=== PATIENT | male | born 1950 | race Caucasian/White ===

== ENCOUNTER 2017-05-14 22:11 | Emergency (ER) | payer MEDICARE, MEDICAID ==
[~2017-05-14] VITALS: Ht 172.7 cm; Wt 95.0 kg
[~2017-05-14 22:11] MED LIST: ADV50500 INH; ALBU18HF2 IH; ASPI-1265 PO; ATOR-2 PO; CLOP75TA33 PO; COL100C PO; FENO135C PO; IMD30T PO; LISI-222 PO; LOP25T PO; NITR0.4T51 SL; NORCO10T PO
[2017-05-14] MEDS ORDERED: methylPREDNISolone sod succ 125mg/2ml vial IV ONE (22:50)
[2017-05-14 23:12] LABS: BASOPHILS # (AUTO) 0.1 X10'3 (0-0.2); BASOPHILS % (AUTO) 0.5 % (0-1); EOSINOPHILS # (AUTO) 0.1 X10'3 (0-0.9); EOSINOPHILS % (AUTO) 0.5 % (0-6); HEMOGLOBIN 14.7 g/dl (14.0-17.9); LYMPHOCYTES # (AUTO) 1.3 X10'3 (1.1-4.8); LYMPHOCYTES % (AUTO) 10.9 % (21-51); MEAN CORPUSCULAR HEMOGLOBIN 29.3 PG (27.0-31.0); MEAN CORPUSCULAR HGB CONC 34.2 % (33.0-36.5); MEAN CORPUSCULAR VOLUME 85.7 FL (78-98); MEAN PLATELET VOLUME 8.3 FL (7.4-10.4); MONOCYTES # (AUTO) 0.5 X10'3 (0-0.9); MONOCYTES % (AUTO) 4.6 % (2-12); NEUTROPHILS % (AUTO) 83.5 % (42-75); PLATELET COUNT 197 X10'3 (140-440); RED BLOOD COUNT 5.02 X10'6 (4.70-6.10); RED CELL DISTRIBUTION WIDTH 14.8 % (11.5-14.5)
[2017-05-14 23:36] LABS: ALANINE AMINOTRANSFERASE 56 U/L (12-78); ALBUMIN 4.1 G/DL (3.4-5.0); ALBUMIN/GLOBULIN RATIO 1.2 (1.1-1.5); ALKALINE PHOSPHATASE 82 IU/L (46-116); ANION GAP 10 (8-16); ASPARTATE AMINO TRANSFERASE 34 U/L (10-37); BILIRUBIN,TOTAL 0.5 MG/DL (0.1-1.0); BLOOD UREA NITROGEN 14 MG/DL (7-18); BUN/CREATININE RATIO 17.5 (5.4-32.0); CALCIUM 9.2 MG/DL (8.5-10.1); CHLORIDE 104 MMOL/L (99-107); GLUCOSE 128 MG/DL (70-104); POTASSIUM 3.9 MMOL/L (3.5-5.1); SODIUM 139 MMOL/L (135-145); TOTAL CARBON DIOXIDE 25.3 MMOL/L (24-32); TOTAL PROTEIN 7.6 G/DL (6.4-8.2); eGFR > 90 ML/MIN
[2017-05-15] MEDS ORDERED: AZIT250T2 PO (00:30)
[2017-05-15] MEDS ORDERED: PRED20TA PO (00:30)
[2017-05-15] MEDS ORDERED: TAM75C PO (00:30)
[2017-05-15 00:39] VITALS: BP 116/79
== END 2017-05-15 00:51 | disposition home or self-care (01) ==
LOC: ER 22:12
DX: J44.1 Chronic obstructive pulmonary disease with (acute) exacerbation (principal); J06.9 Acute upper respiratory infection, unspecified; G62.9 Polyneuropathy, unspecified; I25.10 Atherosclerotic heart disease of native coronary artery without angina pectoris; E78.00 Pure hypercholesterolemia, unspecified; I10 Essential (primary) hypertension; I25.2 Old myocardial infarction; E11.9 Type 2 diabetes mellitus without complications; G89.29 Other chronic pain; Z95.1 Presence of aortocoronary bypass graft; Z98.890 Other specified postprocedural states; Z86.73 Personal history of transient ischemic attack (TIA), and cerebral infarction without residual deficits; Z79.82 Long term (current) use of aspirin; Z79.899 Other long term (current) drug therapy; Z99.81 Dependence on supplemental oxygen
CPT/HCPCS: 36415; 71045; 80053; 83605; 83880; 85025; 87040; 87081; 87502; 87503; 87880; 93005; 96374; 99285; J2930; J7030

== ENCOUNTER 2018-11-14 16:11 | Emergency (ER) | payer MEDICARE, MEDICAID ==
[~2018-11-14] VITALS: Ht 172.7 cm; Wt 100.0 kg
[2018-11-14 17:08] LABS: BASOPHILS % (AUTO) 0.7 % (0-1); EOSINOPHILS # (AUTO) 0.1 X10'3 (0-0.9); EOSINOPHILS % (AUTO) 1.6 % (0-6); HEMATOCRIT 40.4 % (42.0-52.0); HEMOGLOBIN 13.3 g/dl (14.0-17.9); LYMPHOCYTES # (AUTO) 1.6 X10'3 (1.1-4.8); LYMPHOCYTES % (AUTO) 27.2 % (21-51); MEAN CORPUSCULAR HEMOGLOBIN 29.1 PG (27.0-31.0); MEAN CORPUSCULAR HGB CONC 33.1 g/dL (33.0-36.5); MEAN CORPUSCULAR VOLUME 88.1 FL (78-98); MEAN PLATELET VOLUME 8.6 FL (7.4-10.4); MONOCYTES # (AUTO) 0.4 X10'3 (0-0.9); MONOCYTES % (AUTO) 7.2 % (2-12); NEUTROPHILS # (AUTO) 3.7 X10'3 (1.8-7.7); NEUTROPHILS % (AUTO) 63.3 % (42-75); PLATELET COUNT 157 X10'3 (140-440); RED BLOOD COUNT 4.58 X10'6 (4.70-6.10); RED CELL DISTRIBUTION WIDTH 15.4 % (11.5-14.5); WHITE BLOOD COUNT 5.8 X10'3 (4.5-11.0)
--- NOTE | 2018-11-14 17:10 | NUR ---
GAIT TEST DONE, AND PT'S GAIT WAS EXCELLENT. PT'S WAS IN NO DISTRESS.
[2018-11-14 17:19] LABS: PARTIAL THROMBOPLASTIN TIME 29 SECONDS (22-32)
[2018-11-14 17:21] LABS: ALANINE AMINOTRANSFERASE 36 U/L (12-78); ALBUMIN 3.5 G/DL (3.4-5.0); ALKALINE PHOSPHATASE 78 IU/L (46-116); ANION GAP 11 (8-16); ASPARTATE AMINO TRANSFERASE 21 U/L (10-37); BILIRUBIN,TOTAL 0.4 MG/DL (0.1-1.0); BLOOD UREA NITROGEN 16 MG/DL (7-18); BUN/CREATININE RATIO 16.2 (5.4-32.0); CALCIUM 8.9 MG/DL (8.5-10.1); CHLORIDE 109 MMOL/L (99-107); CREATININE 0.99 MG/DL (0.60-1.10); GLUCOSE 115 MG/DL (70-104); POTASSIUM 3.7 MMOL/L (3.5-5.1); SODIUM 144 MMOL/L (135-145); TOTAL CARBON DIOXIDE 24.2 MMOL/L (24-32); eGFR 75 ML/MIN
[2018-11-14 17:23] LABS: TROPONIN I < 0.04 NG/ML (0.0-0.05)
[2018-11-14 18:02] VITALS: BP 139/79
== END 2018-11-14 18:32 | disposition home or self-care (01) ==
LOC: ER 16:12
DX: R20.0 Anesthesia of skin (principal); R20.2 Paresthesia of skin; R53.1 Weakness; R51 Headache; R22.1 Localized swelling, mass and lump, neck; I25.10 Atherosclerotic heart disease of native coronary artery without angina pectoris; E78.00 Pure hypercholesterolemia, unspecified; I25.2 Old myocardial infarction; J44.9 Chronic obstructive pulmonary disease, unspecified; G89.29 Other chronic pain; E11.42 Type 2 diabetes mellitus with diabetic polyneuropathy; I50.9 Heart failure, unspecified; I11.0 Hypertensive heart disease with heart failure; Z79.82 Long term (current) use of aspirin; Z79.899 Other long term (current) drug therapy; Z86.73 Personal history of transient ischemic attack (TIA), and cerebral infarction without residual deficits; Z98.890 Other specified postprocedural states; Z95.1 Presence of aortocoronary bypass graft
CPT/HCPCS: 36415; 70450; 71045; 80053; 82948; 84484; 85025; 85610; 85730; 93005; 99284

== ENCOUNTER 2019-01-04 18:14 | Emergency (ER) | payer MEDICARE, MEDICAID ==
[~2019-01-04] VITALS: Ht 172.7 cm; Wt 95.4 kg
[2019-01-04 18:54] LABS: BASOPHILS # (AUTO) 0.1 X10'3 (0-0.2); BASOPHILS % (AUTO) 0.7 % (0-1); EOSINOPHILS % (AUTO) 0.4 % (0-6); HEMATOCRIT 42.5 % (42.0-52.0); HEMOGLOBIN 14.3 g/dl (14.0-17.9); LYMPHOCYTES # (AUTO) 1.2 X10'3 (1.1-4.8); LYMPHOCYTES % (AUTO) 11.5 % (21-51); MEAN CORPUSCULAR HEMOGLOBIN 29.4 PG (27.0-31.0); MEAN CORPUSCULAR HGB CONC 33.7 g/dL (33.0-36.5); MEAN CORPUSCULAR VOLUME 87.3 FL (78-98); MEAN PLATELET VOLUME 8.7 FL (7.4-10.4); MONOCYTES # (AUTO) 0.5 X10'3 (0-0.9); MONOCYTES % (AUTO) 4.9 % (2-12); NEUTROPHILS # (AUTO) 8.7 X10'3 (1.8-7.7); NEUTROPHILS % (AUTO) 82.5 % (42-75); PLATELET COUNT 186 X10'3 (140-440); RED BLOOD COUNT 4.87 X10'6 (4.70-6.10); RED CELL DISTRIBUTION WIDTH 15.8 % (11.5-14.5); WHITE BLOOD COUNT 10.6 X10'3 (4.5-11.0)
[2019-01-04 19:08] LABS: ALANINE AMINOTRANSFERASE 44 U/L (12-78); ALKALINE PHOSPHATASE 91 IU/L (46-116); ANION GAP 11 (8-16); BILIRUBIN,TOTAL 0.5 MG/DL (0.1-1.0); BLOOD UREA NITROGEN 16 MG/DL (7-18); BUN/CREATININE RATIO 17.4 (5.4-32.0); CALCIUM 8.9 MG/DL (8.5-10.1); CHLORIDE 103 MMOL/L (99-107); CREATININE 0.92 MG/DL (0.60-1.10); SODIUM 139 MMOL/L (135-145); TOTAL PROTEIN 7.9 G/DL (6.4-8.2); eGFR 82 ML/MIN
[2019-01-04 19:21] LABS: GLUCOSE 132 MG/DL (70-104); POTASSIUM 3.9 MMOL/L (3.5-5.1)
[2019-01-04 19:23] LABS: ASPARTATE AMINO TRANSFERASE 34 U/L (10-37)
[2019-01-04] MEDS ORDERED: normal saline 1000ML IV soln IVB ONE (19:30)
[2019-01-04] MEDS ORDERED: methylPREDNISolone sod succ 125mg/2ml vial IV ONE (19:30)
[2019-01-04] MEDS ORDERED: ipratropium/albuterol 3ml nebule NEB ONE (19:30)
[2019-01-04] MEDS ORDERED: acetaminophen 325mg tablet PO ONE (19:55)
[2019-01-04] MEDS ORDERED: CefTRIAXone 2gm/D5W 50ml 50 ML IV ONE (19:55)
[2019-01-04] MEDS ORDERED: CEPH250T PO (19:57)
[2019-01-04] MEDS ORDERED: PRED20TA PO (19:57)
[2019-01-04] MEDS ORDERED: GUAI-647 PO (19:57)
[2019-01-04 21:11] VITALS: BP 128/73
== END 2019-01-04 21:13 | disposition home or self-care (01) ==
LOC: ER 18:14
DX: J18.9 Pneumonia, unspecified organism (principal); R00.0 Tachycardia, unspecified; G62.9 Polyneuropathy, unspecified; I25.10 Atherosclerotic heart disease of native coronary artery without angina pectoris; E78.00 Pure hypercholesterolemia, unspecified; I25.2 Old myocardial infarction; J44.9 Chronic obstructive pulmonary disease, unspecified; E11.9 Type 2 diabetes mellitus without complications; G89.29 Other chronic pain; I11.0 Hypertensive heart disease with heart failure; I50.9 Heart failure, unspecified; Z79.82 Long term (current) use of aspirin; Z79.2 Long term (current) use of antibiotics; Z86.73 Personal history of transient ischemic attack (TIA), and cerebral infarction without residual deficits; Z98.890 Other specified postprocedural states; Z79.899 Other long term (current) drug therapy
CPT/HCPCS: 36415; 71046; 80053; 83605; 85025; 87040; 94640; 94760; 96365; 96375; 99284; J0696; J2930; J7030

== ENCOUNTER 2019-11-20 16:29 | Emergency (ER) | payer MEDICARE, MEDICAID ==
[~2019-11-20] VITALS: Ht 172.7 cm; Wt 100.0 kg
[2019-11-20 17:10] LABS: BASOPHILS # (AUTO) 0.1 X10'3 (0-0.2); BASOPHILS % (AUTO) 1.2 % (0-1); EOSINOPHILS # (AUTO) 0.1 X10'3 (0-0.9); EOSINOPHILS % (AUTO) 1.3 % (0-6); HEMATOCRIT 42.4 % (42.0-52.0); HEMOGLOBIN 14.3 g/dl (14.0-17.9); LYMPHOCYTES % (AUTO) 29.6 % (21-51); MEAN CORPUSCULAR HGB CONC 33.8 g/dL (33.0-36.5); MEAN CORPUSCULAR VOLUME 85.9 FL (78-98); MEAN PLATELET VOLUME 8.8 FL (7.4-10.4); MONOCYTES # (AUTO) 0.5 X10'3 (0-0.9); MONOCYTES % (AUTO) 7.1 % (2-12); NEUTROPHILS # (AUTO) 4.1 X10'3 (1.8-7.7); NEUTROPHILS % (AUTO) 60.8 % (42-75); PLATELET COUNT 176 X10'3 (140-440); RED BLOOD COUNT 4.93 X10'6 (4.70-6.10); RED CELL DISTRIBUTION WIDTH 15.9 % (11.5-14.5); WHITE BLOOD COUNT 6.8 X10'3 (4.5-11.0)
[2019-11-20 17:27] LABS: ALANINE AMINOTRANSFERASE 27 U/L (12-78); ALBUMIN 3.8 G/DL (3.4-5.0); ALKALINE PHOSPHATASE 84 IU/L (46-116); ANION GAP 10 (8-16); BILIRUBIN,TOTAL 0.5 MG/DL (0.1-1.0); BLOOD UREA NITROGEN 13 MG/DL (7-18); BUN/CREATININE RATIO 14.4 (5.4-32.0); CALCIUM 8.7 MG/DL (8.5-10.1); CHLORIDE 105 MMOL/L (99-107); SODIUM 140 MMOL/L (135-145); TOTAL CARBON DIOXIDE 25.2 MMOL/L (24-32); TOTAL PROTEIN 7.6 G/DL (6.4-8.2); eGFR 83 ML/MIN
[2019-11-20 17:30] LABS: ASPARTATE AMINO TRANSFERASE 32 U/L (10-37); GLUCOSE 119 MG/DL (70-104); POTASSIUM 3.5 MMOL/L (3.5-5.1)
[2019-11-20 18:55] VITALS: BP 158/86
== END 2019-11-20 18:59 | disposition left against medical advice (07) ==
LOC: ER 16:30
DX: R07.89 Other chest pain (principal); E11.42 Type 2 diabetes mellitus with diabetic polyneuropathy; I25.10 Atherosclerotic heart disease of native coronary artery without angina pectoris; E78.00 Pure hypercholesterolemia, unspecified; I10 Essential (primary) hypertension; I25.2 Old myocardial infarction; J44.9 Chronic obstructive pulmonary disease, unspecified; G89.29 Other chronic pain; Z95.1 Presence of aortocoronary bypass graft; Z98.890 Other specified postprocedural states; Z79.82 Long term (current) use of aspirin; Z79.899 Other long term (current) drug therapy
CPT/HCPCS: 36415; 71045; 80053; 84484; 85025; 93005; 99285

== ENCOUNTER 2021-04-26 15:57 | Inpatient (IN) | payer MEDICARE, MEDICAID ==
[~2021-04-26] VITALS: Ht 172.7 cm; Wt 85.9 kg
[2021-04-26 17:11] LABS: BASOPHILS % (AUTO) 0.2 % (0-1); EOSINOPHILS % (AUTO) 0 % (0-6); HEMATOCRIT 40.3 % (42.0-52.0); HEMOGLOBIN 13.6 g/dl (14.0-17.9); LYMPHOCYTES # (AUTO) 0.5 X10'3 (1.1-4.8); MEAN CORPUSCULAR HEMOGLOBIN 28.4 PG (27.0-31.0); MEAN CORPUSCULAR HGB CONC 33.8 g/dL (33.0-36.5); MEAN CORPUSCULAR VOLUME 84.1 FL (78-98); MEAN PLATELET VOLUME 8.9 FL (7.4-10.4); MONOCYTES # (AUTO) 0.3 X10'3 (0-0.9); MONOCYTES % (AUTO) 4.8 % (2-12); NEUTROPHILS # (AUTO) 4.5 X10'3 (1.8-7.7); PLATELET COUNT 143 X10'3 (140-440); RED BLOOD COUNT 4.79 X10'6 (4.70-6.10); RED CELL DISTRIBUTION WIDTH 15.2 % (11.5-14.5); WHITE BLOOD COUNT 5.2 X10'3 (4.5-11.0)
[2021-04-26 17:30] LABS: ALANINE AMINOTRANSFERASE 54 U/L (12-78); ALBUMIN 3.1 G/DL (3.4-5.0); ALBUMIN/GLOBULIN RATIO 0.8 (1.1-1.5); ALKALINE PHOSPHATASE 67 IU/L (46-116); ANION GAP 10 (8-16); ASPARTATE AMINO TRANSFERASE 72 U/L (10-37); BILIRUBIN,TOTAL 0.8 MG/DL (0.1-1.0); BLOOD UREA NITROGEN 24 MG/DL (7-18); BUN/CREATININE RATIO 21.2 (5.4-32.0); CALCIUM 8.4 MG/DL (8.5-10.1); CHLORIDE 100 MMOL/L (99-107); CREATININE 1.13 MG/DL (0.60-1.10); GLUCOSE 131 MG/DL (70-104); SODIUM 135 MMOL/L (135-145); TOTAL CARBON DIOXIDE 24.7 MMOL/L (24-32); eGFR 64 ML/MIN
[2021-04-26] MEDS ORDERED: potassium Cl 20 mEq SR tablet PO PRN ×2 (17:40)
[2021-04-26] MEDS ORDERED: magnesium 2GM in 50ml NS 50 ML IV PRN (17:40)
[2021-04-26] MEDS ORDERED: magnesium Cl slow-release 64mg tablet PO PRN (17:40)
[2021-04-26] MEDS ORDERED: magnesium 4gm in 100ml NS 100 ML IV PRN (17:40)
[2021-04-26] MEDS ORDERED: acetaminophen 325mg tablet PO PRN (17:40)
[2021-04-26] MEDS ORDERED: potassium CL 10mEq/100ml bag 100 ML IV PRN (17:40)
[2021-04-26] MEDS ORDERED: mag hydrox/Alum hydrox/simeth 30ml oral suspension PO PRN (17:40)
[2021-04-26] MEDS ORDERED: magnesium hydroxide 30ml (MOM) UD suspension PO PRN (17:40)
[2021-04-26] MEDS ORDERED: ondansetron/PF 4mg/2ml inj IV PRN (17:40)
[2021-04-26] MEDS ORDERED: CLOP75TA34 PO (17:47)
[2021-04-26] MEDS ORDERED: TRAZ-251 PO (17:47)
[2021-04-26] MEDS ORDERED: GABA300C PO (17:47)
[2021-04-26] MEDS ORDERED: ALBU8HFA IH (17:47)
[2021-04-26] MEDS ORDERED: LISI2.5T14 PO (17:47)
[2021-04-26] MEDS ORDERED: REMDESIVIR INJ 200 MG in normal saline 100ml IV soln 100 ML IV ONE (18:00)
[2021-04-26] MEDS ORDERED: dexamethasone inj 6 MG in dextrose 5%-water 100 ML IV ONE (18:00)
--- NOTE | 2021-04-26 18:00 | NUR ---
PT REFUSING ADMISSION. MD AT BEDSIDE EXPLAINING RISKS OF LEAVING HOSPITAL. PT IS CURRENTLY REQUIRING 15 LTR O2 ON NONREBREATHER. O2 TURNED OFF TO TRIAL O2 DEMANDS. MEDS CURRENTLY ON HOLD.
[2021-04-26 18:07] LABS: D-DIMER 1.94 MG/L FEU (0-0.50)
[2021-04-26] MEDS: normal saline 1000ml 1,000 ML IV SCH ×2 (18:34→19:55)
[2021-04-26] MEDS ORDERED: iohexol 350MG/ML 100ml bottle IV ONE (18:50)
--- NOTE | 2021-04-26 19:00 | NUR ---
Patient in room ORTHO 4016. I have received report from SARANYA Young and had the opportunity to ask questions and assume patient care.
[2021-04-26 19:21] VITALS: BP 126/70
[2021-04-26] MEDS: K and/or MAG REPLACEMENT MC SCH (19:44)
[2021-04-26] MEDS: docusate sod 100mg capsule PO SCH (19:45)
[2021-04-26] MEDS: enoxaparin 40mg/0.4ml syringe SUBCUT SCH (19:52)
[2021-04-26] MEDS: dexamethasone 4mg/ml inj IV SCH (19:52)
[2021-04-26 19:55] LABS: MAGNESIUM 1.9 MG/DL (1.5-2.4); POTASSIUM 3.9 MMOL/L (3.5-5.1)
[2021-04-26] MEDS: LORazepam 0.5 MG tablet PO PRN (21:42)
[2021-04-26 22:00] VITALS: BP 117/69
[2021-04-26] MEDS: traZODone 50mg tablet PO SCH (22:27)
[2021-04-27 02:00] VITALS: BP 113/72
[2021-04-27] MEDS: dexamethasone 4mg/ml inj IV SCH ×4 (02:26→20:36)
[2021-04-27 06:00] VITALS: BP 133/71
--- NOTE | 2021-04-27 06:05 | NUR ---
RECEIVED REPORT FROM SARANYA MELVIN
--- NOTE | 2021-04-27 06:30 | NUR ---
Problems reprioritized. Patient report given, questions answered & plan of care reviewed with SARANYA Lala.
[2021-04-27] MEDS: REMDESIVIR INJ 100 MG in normal saline 100ml IV soln 100 ML IV SCH (07:44)
[2021-04-27] MEDS: enoxaparin 40mg/0.4ml syringe SUBCUT SCH ×2 (07:46→20:35)
[2021-04-27] MEDS: docusate sod 100mg capsule PO SCH ×2 (07:47→20:00)
[2021-04-27 07:49] LABS: EOSINOPHILS % (AUTO) 0 % (0-6); HEMOGLOBIN 14.5 g/dl (14.0-17.9); LYMPHOCYTES # (AUTO) 0.7 X10'3 (1.1-4.8); MONOCYTES # (AUTO) 0.2 X10'3 (0-0.9)
[2021-04-27 07:53] LABS: BASOPHILS % (AUTO) 0.7 % (0-1); HEMATOCRIT 43.4 % (42.0-52.0); LYMPHOCYTES % (AUTO) 13.5 % (21-51); MEAN CORPUSCULAR HEMOGLOBIN 28.1 PG (27.0-31.0); MEAN CORPUSCULAR HGB CONC 33.3 g/dL (33.0-36.5); MEAN CORPUSCULAR VOLUME 84.3 FL (78-98); MEAN PLATELET VOLUME 8.7 FL (7.4-10.4); MONOCYTES % (AUTO) 3.5 % (2-12); NEUTROPHILS % (AUTO) 82.3 % (42-75); PLATELET COUNT 151 X10'3 (140-440); RED BLOOD COUNT 5.15 X10'6 (4.70-6.10); RED CELL DISTRIBUTION WIDTH 15.3 % (11.5-14.5); WHITE BLOOD COUNT 4.8 X10'3 (4.5-11.0)
[2021-04-27] MEDS: K and/or MAG REPLACEMENT MC SCH ×2 (08:00→20:00)
[2021-04-27 08:02] LABS: ANION GAP 12 (8-16); BLOOD UREA NITROGEN 27 MG/DL (7-18); BUN/CREATININE RATIO 27.8 (5.4-32.0); CALCIUM 8.7 MG/DL (8.5-10.1); CHLORIDE 103 MMOL/L (99-107); CREATININE 0.97 MG/DL (0.60-1.10); GLUCOSE 155 MG/DL (70-104); POTASSIUM 4.3 MMOL/L (3.5-5.1); SODIUM 139 MMOL/L (135-145); TOTAL CARBON DIOXIDE 24.4 MMOL/L (24-32); eGFR 76 ML/MIN
[2021-04-27 08:15] LABS: C-REACTIVE PROTEIN 5.65 MG/DL (0.0-0.5); CHOL/HDL RATIO 3.3 (0.00-4.99); CHOLESTEROL 83 MG/DL (0-200); HDL CHOLESTEROL 25 MG/DL (35-60); LDL CHOLESTEROL 37 MG/DL (50-100); TRIGLYCERIDES 103 MG/DL (20-135)
[2021-04-27 08:18] LABS: HEMOGLOBIN A1C 6.7 % (4.5-6.2)
[2021-04-27] MEDS ORDERED: traZODone 50mg tablet PO PRN (08:40)
[2021-04-27] MEDS ORDERED: ALBUTEROL INHALER 1 PUFF/90 MCG INHALER IH PRN (08:45)
[2021-04-27] MEDS: clopidogrel 75mg tablet PO SCH (08:52)
[2021-04-27] MEDS: lisinopril 2.5mg tablet PO SCH (08:52)
[2021-04-27] MEDS: gabapentin 300mg capsule PO SCH ×3 (08:53→20:36)
--- NOTE | 2021-04-27 08:59 | NUR ---
Malnutrition consult: Pt admitted w/ Covid diagnosed 10 days ago a SOB starting 3 days ago per EMR; on 15L HF oxygen. Current wt not scaled though consistent w/ wt from previous admissions. No signs of muscle or fat wasting reported. Currently on Heart healthy diet w/ 25% intake of first meal. Recommend liberalizing to Regular diet in view of Lipid panel WNL. No edema noted. At this time, pt does not meet minimum criteria for malnutrition. Will continue to monitor. Addendum: 04/27/21 at [address] Amended: Links added.
[2021-04-27 10:00] VITALS: BP 137/73
[2021-04-27] MEDS ORDERED: LORazepam 0.5 MG tablet PO PRN (13:30)
[2021-04-27] MEDS: LORazepam 0.5 MG tablet PO PRN (13:47)
[2021-04-27 14:00] VITALS: BP 133/72
[2021-04-27 18:00] VITALS: BP 121/54
--- NOTE | 2021-04-27 18:06 | NUR ---
GAVE REPORT TO SARANYA HILL
[2021-04-27] MEDS: ALBUTEROL INHALER 1 PUFF/90 MCG INHALER IH SCH (20:05)
[2021-04-27] MEDS: traZODone 50mg tablet PO SCH (20:36)
[2021-04-27 22:04] VITALS: BP 131/53
[2021-04-28] MEDS: dexamethasone 4mg/ml inj IV SCH ×2 (01:26→07:19)
[2021-04-28 02:00] VITALS: BP 107/59
[2021-04-28] MEDS: ALBUTEROL INHALER 1 PUFF/90 MCG INHALER IH SCH ×3 (03:02→15:00)
[2021-04-28 06:00] VITALS: BP 116/72
[2021-04-28] MEDS: LORazepam 0.5 MG tablet PO PRN ×3 (06:03→20:03)
--- NOTE | 2021-04-28 06:18 | NUR ---
Problems reprioritized. Patient report given, questions answered & plan of care reviewed with SARANYA HUTCHISON.
--- NOTE | 2021-04-28 06:24 | NUR ---
Patient in room ORTHO 4016. I have received report from SARANYA HILL and had the opportunity to ask questions and assume patient care.
[2021-04-28] MEDS: enoxaparin 40mg/0.4ml syringe SUBCUT SCH ×2 (07:19→20:03)
[2021-04-28] MEDS: gabapentin 300mg capsule PO SCH ×3 (07:20→20:02)
[2021-04-28] MEDS: lisinopril 2.5mg tablet PO SCH (07:20)
[2021-04-28] MEDS: REMDESIVIR INJ 100 MG in normal saline 100ml IV soln 100 ML IV SCH (07:20)
[2021-04-28] MEDS: clopidogrel 75mg tablet PO SCH (07:20)
[2021-04-28] MEDS: atorvastatin 20mg tablet PO SCH (07:20)
[2021-04-28] MEDS: docusate sod 100mg capsule PO SCH ×2 (07:21→20:02)
[2021-04-28] MEDS: K and/or MAG REPLACEMENT MC SCH ×2 (08:00→20:00)
--- NOTE | 2021-04-28 08:19 | NUR ---
PAGER ID: [phone] MESSAGE: When you come up when you talk to Anthony Milian, he wants to go home and says he wants to take his chances. h'es on 30L at 87%sp02. Chelsie [phone]
[2021-04-28 08:31] LABS: BASOPHILS % (AUTO) 0.1 % (0-1); EOSINOPHILS % (AUTO) 0 % (0-6); HEMATOCRIT 43.1 % (42.0-52.0); HEMOGLOBIN 14.2 g/dl (14.0-17.9); LYMPHOCYTES # (AUTO) 0.7 X10'3 (1.1-4.8); LYMPHOCYTES % (AUTO) 5.8 % (21-51); MEAN CORPUSCULAR HGB CONC 32.9 g/dL (33.0-36.5); MEAN PLATELET VOLUME 8.8 FL (7.4-10.4); MONOCYTES # (AUTO) 0.5 X10'3 (0-0.9); MONOCYTES % (AUTO) 4.2 % (2-12); NEUTROPHILS # (AUTO) 10.4 X10'3 (1.8-7.7); NEUTROPHILS % (AUTO) 89.9 % (42-75); PLATELET COUNT 192 X10'3 (140-440); RED BLOOD COUNT 5.08 X10'6 (4.70-6.10); RED CELL DISTRIBUTION WIDTH 15.2 % (11.5-14.5); WHITE BLOOD COUNT 11.6 X10'3 (4.5-11.0)
[2021-04-28 09:30] LABS: ANION GAP 12 (8-16); BLOOD UREA NITROGEN 31 MG/DL (7-18); BUN/CREATININE RATIO 34.1 (5.4-32.0); CALCIUM 8.8 MG/DL (8.5-10.1); CHLORIDE 103 MMOL/L (99-107); CREATININE 0.91 MG/DL (0.60-1.10); GLUCOSE 163 MG/DL (70-104); SODIUM 139 MMOL/L (135-145); TOTAL CARBON DIOXIDE 23.8 MMOL/L (24-32); eGFR 82 ML/MIN
[2021-04-28 10:00] VITALS: BP 121/72
[2021-04-28] MEDS ORDERED: TOCILIZUMAB 80MG/4 ML INJ. 800 MG in normal saline 100ml IV soln 60 ML IV ONE (10:45)
[2021-04-28 18:00] VITALS: BP 109/53
--- NOTE | 2021-04-28 18:33 | NUR ---
Problems reprioritized. Patient report given, questions answered & plan of care reviewed with SARANYA Rodriguez.
[2021-04-28] MEDS ORDERED: dexamethasone sod phosphate 10mg/ml inj IV SCH (20:00)
[2021-04-28] MEDS: traZODone 50mg tablet PO SCH (20:02)
[2021-04-28] MEDS: dexamethasone 6 MG in D5W 100ml IV soln IV SCH (20:04)
[2021-04-28] MEDS: normal saline 1000ml 1,000 ML IV SCH (20:08)
[2021-04-28 22:00] VITALS: BP 132/79
[2021-04-29 02:00] VITALS: BP 133/78
[2021-04-29] MEDS: ALBUTEROL INHALER 1 PUFF/90 MCG INHALER IH SCH ×4 (02:36→21:00)
[2021-04-29] MEDS: LORazepam 0.5 MG tablet PO PRN ×4 (03:16→20:54)
[2021-04-29 06:00] VITALS: BP 129/72
--- NOTE | 2021-04-29 06:26 | NUR ---
Patient in room ORTHO 4016. I have received report from SARANYA Rodriguez and had the opportunity to ask questions and assume patient care.
[2021-04-29] MEDS: enoxaparin 40mg/0.4ml syringe SUBCUT SCH ×2 (07:49→20:55)
[2021-04-29] MEDS: dexamethasone 6 MG in D5W 100ml IV soln IV SCH ×2 (07:49→20:54)
[2021-04-29] MEDS: atorvastatin 20mg tablet PO SCH (07:49)
[2021-04-29] MEDS: lisinopril 2.5mg tablet PO SCH (07:50)
[2021-04-29] MEDS: gabapentin 300mg capsule PO SCH ×3 (07:50→20:54)
[2021-04-29] MEDS: docusate sod 100mg capsule PO SCH ×2 (07:50→20:54)
[2021-04-29] MEDS: clopidogrel 75mg tablet PO SCH (07:50)
[2021-04-29] MEDS: K and/or MAG REPLACEMENT MC SCH ×2 (08:00→20:00)
[2021-04-29 08:43] LABS: BASOPHILS % (AUTO) 0.1 % (0-1); EOSINOPHILS % (AUTO) 0 % (0-6); HEMATOCRIT 42.3 % (42.0-52.0); HEMOGLOBIN 14.3 g/dl (14.0-17.9); LYMPHOCYTES # (AUTO) 0.5 X10'3 (1.1-4.8); LYMPHOCYTES % (AUTO) 5.6 % (21-51); MEAN CORPUSCULAR HEMOGLOBIN 28.3 PG (27.0-31.0); MEAN CORPUSCULAR HGB CONC 33.7 g/dL (33.0-36.5); MEAN CORPUSCULAR VOLUME 83.9 FL (78-98); MEAN PLATELET VOLUME 8.6 FL (7.4-10.4); MONOCYTES # (AUTO) 0.4 X10'3 (0-0.9); MONOCYTES % (AUTO) 4.9 % (2-12); NEUTROPHILS # (AUTO) 7.9 X10'3 (1.8-7.7); NEUTROPHILS % (AUTO) 89.4 % (42-75); PLATELET COUNT 227 X10'3 (140-440); RED BLOOD COUNT 5.04 X10'6 (4.70-6.10); RED CELL DISTRIBUTION WIDTH 15.2 % (11.5-14.5); WHITE BLOOD COUNT 8.9 X10'3 (4.5-11.0)
[2021-04-29] MEDS: REMDESIVIR INJ 100 MG in normal saline 100ml IV soln 100 ML IV SCH (08:55)
[2021-04-29 08:59] LABS: ANION GAP 9 (8-16); BLOOD UREA NITROGEN 31 MG/DL (7-18); BUN/CREATININE RATIO 35.6 (5.4-32.0); C-REACTIVE PROTEIN 1.42 MG/DL (0.0-0.5); CALCIUM 8.7 MG/DL (8.5-10.1); CHLORIDE 104 MMOL/L (99-107); CREATININE 0.87 MG/DL (0.60-1.10); GLUCOSE 146 MG/DL (70-104); POTASSIUM 4.3 MMOL/L (3.5-5.1); SODIUM 138 MMOL/L (135-145); TOTAL CARBON DIOXIDE 25.1 MMOL/L (24-32); eGFR 86 ML/MIN
[2021-04-29 09:04] LABS: D-DIMER 2.01 MG/L FEU (0-0.50)
[2021-04-29 10:00] VITALS: BP 128/80
[2021-04-29 14:00] VITALS: BP 134/81
--- NOTE | 2021-04-29 15:59 | NUR ---
paged Dr. Gallardo regarding pt wanting to leave AMA
[2021-04-29] MEDS ORDERED: LORazepam 0.5 MG tablet PO ONE (16:05)
--- NOTE | 2021-04-29 18:18 | NUR ---
Problems reprioritized. Patient report given, questions answered & plan of care reviewed with SARANYA Thakur.
--- NOTE | 2021-04-29 18:31 | NUR ---
Patient in room ORTHO 4016. I have received report from Ofe BEAVER and had the opportunity to ask questions and assume patient care. Addendum: 04/29/21 at 1831 by Ofe Juarez RN received report from Suyapa BEAVER
[2021-04-29 18:45] VITALS: BP 134/77
[2021-04-29] MEDS: traZODone 50mg tablet PO SCH (20:54)
[2021-04-29 22:00] VITALS: BP 125/70
[2021-04-30 02:00] VITALS: BP 137/78
[2021-04-30] MEDS: ALBUTEROL INHALER 1 PUFF/90 MCG INHALER IH SCH ×4 (02:23→20:16)
[2021-04-30 06:00] VITALS: BP 136/77
--- NOTE | 2021-04-30 06:23 | NUR ---
Problems reprioritized. Patient report given, questions answered & plan of care reviewed with Yimi BEAVER.
[2021-04-30] MEDS: clopidogrel 75mg tablet PO SCH (07:57)
[2021-04-30] MEDS: enoxaparin 40mg/0.4ml syringe SUBCUT SCH ×2 (07:57→18:50)
[2021-04-30] MEDS: gabapentin 300mg capsule PO SCH ×3 (07:57→18:51)
[2021-04-30] MEDS: dexamethasone 6 MG in D5W 100ml IV soln IV SCH ×2 (07:57→18:51)
[2021-04-30] MEDS: docusate sod 100mg capsule PO SCH ×2 (07:57→18:51)
[2021-04-30] MEDS: atorvastatin 20mg tablet PO SCH (07:57)
[2021-04-30] MEDS: LORazepam 0.5 MG tablet PO PRN ×2 (07:57→18:51)
[2021-04-30] MEDS: lisinopril 2.5mg tablet PO SCH (07:57)
[2021-04-30] MEDS: K and/or MAG REPLACEMENT MC SCH ×2 (07:58→18:51)
[2021-04-30] MEDS: REMDESIVIR INJ 100 MG in normal saline 100ml IV soln 100 ML IV SCH ×2 (07:58→08:00)
[2021-04-30 09:00] LABS: BASOPHILS % (AUTO) 0.1 % (0-1); EOSINOPHILS % (AUTO) 0 % (0-6); HEMOGLOBIN 14.7 g/dl (14.0-17.9); LYMPHOCYTES # (AUTO) 0.4 X10'3 (1.1-4.8); LYMPHOCYTES % (AUTO) 5.1 % (21-51); MEAN CORPUSCULAR HEMOGLOBIN 28.2 PG (27.0-31.0); MEAN CORPUSCULAR HGB CONC 32.7 g/dL (33.0-36.5); MEAN CORPUSCULAR VOLUME 86.2 FL (78-98); MONOCYTES # (AUTO) 0.3 X10'3 (0-0.9); MONOCYTES % (AUTO) 3.8 % (2-12); NEUTROPHILS # (AUTO) 7.4 X10'3 (1.8-7.7); PLATELET COUNT 238 X10'3 (140-440); RED BLOOD COUNT 5.23 X10'6 (4.70-6.10); RED CELL DISTRIBUTION WIDTH 15.3 % (11.5-14.5); WHITE BLOOD COUNT 8.1 X10'3 (4.5-11.0)
[2021-04-30 09:27] LABS: ALBUMIN 3.2 G/DL (3.4-5.0); ANION GAP 13 (8-16); BLOOD UREA NITROGEN 30 MG/DL (7-18); BUN/CREATININE RATIO 33.7 (5.4-32.0); C-REACTIVE PROTEIN 0.74 MG/DL (0.0-0.5); CALCIUM 8.7 MG/DL (8.5-10.1); CHLORIDE 105 MMOL/L (99-107); CREATININE 0.89 MG/DL (0.60-1.10); GLUCOSE 153 MG/DL (70-104); POTASSIUM 4.5 MMOL/L (3.5-5.1); SODIUM 141 MMOL/L (135-145); TOTAL CARBON DIOXIDE 22.9 MMOL/L (24-32); eGFR 84 ML/MIN
[2021-04-30 09:53] LABS: D-DIMER 2.01 MG/L FEU (0-0.50)
[2021-04-30] MEDS ORDERED: REMDESIVIR INJ 100 MG in normal saline 100ml IV soln 100 ML IV ONE (10:35)
[2021-04-30] MEDS: morphine 2 MG/ML inj. syringe IV PRN ×3 (10:48→20:01)
[2021-04-30 11:00] VITALS: BP 141/64
[2021-04-30 14:00] VITALS: BP 125/82
[2021-04-30 18:00] VITALS: BP 129/79
[2021-04-30] MEDS: normal saline 1000ml 1,000 ML IV SCH (18:51)
[2021-04-30] MEDS: traZODone 50mg tablet PO SCH (18:51)
[2021-04-30 22:00] VITALS: BP 122/75
[2021-05-01 02:00] VITALS: BP 120/62
[2021-05-01] MEDS: LORazepam 0.5 MG tablet PO PRN ×3 (02:00→11:35)
[2021-05-01] MEDS: ALBUTEROL INHALER 1 PUFF/90 MCG INHALER IH SCH ×3 (03:40→23:17)
[2021-05-01 06:00] VITALS: BP 122/63
[2021-05-01] MEDS: lisinopril 2.5mg tablet PO SCH (07:13)
[2021-05-01] MEDS: docusate sod 100mg capsule PO SCH ×2 (07:13→20:07)
[2021-05-01] MEDS: atorvastatin 20mg tablet PO SCH (07:13)
[2021-05-01] MEDS: gabapentin 300mg capsule PO SCH ×3 (07:13→20:27)
[2021-05-01] MEDS: enoxaparin 40mg/0.4ml syringe SUBCUT SCH ×2 (07:13→20:07)
[2021-05-01] MEDS: clopidogrel 75mg tablet PO SCH (07:13)
[2021-05-01] MEDS: dexamethasone 6 MG in D5W 100ml IV soln IV SCH ×2 (07:14→20:07)
[2021-05-01] MEDS: K and/or MAG REPLACEMENT MC SCH ×2 (07:14→20:08)
[2021-05-01 08:26] LABS: BASOPHILS % (AUTO) 0.2 % (0-1); EOSINOPHILS % (AUTO) 0 % (0-6); HEMATOCRIT 44.2 % (42.0-52.0); HEMOGLOBIN 14.9 g/dl (14.0-17.9); LYMPHOCYTES # (AUTO) 0.6 X10'3 (1.1-4.8); LYMPHOCYTES % (AUTO) 7.5 % (21-51); MEAN CORPUSCULAR HEMOGLOBIN 28.5 PG (27.0-31.0); MEAN CORPUSCULAR HGB CONC 33.8 g/dL (33.0-36.5); MEAN CORPUSCULAR VOLUME 84.3 FL (78-98); MEAN PLATELET VOLUME 8.8 FL (7.4-10.4); MONOCYTES # (AUTO) 0.3 X10'3 (0-0.9); MONOCYTES % (AUTO) 3.1 % (2-12); NEUTROPHILS # (AUTO) 7.5 X10'3 (1.8-7.7); NEUTROPHILS % (AUTO) 89.2 % (42-75); PLATELET COUNT 270 X10'3 (140-440); RED BLOOD COUNT 5.24 X10'6 (4.70-6.10); RED CELL DISTRIBUTION WIDTH 15.4 % (11.5-14.5); WHITE BLOOD COUNT 8.4 X10'3 (4.5-11.0)
[2021-05-01 08:28] LABS: ALBUMIN 3.2 G/DL (3.4-5.0); ANION GAP 9 (8-16); BLOOD UREA NITROGEN 28 MG/DL (7-18); BUN/CREATININE RATIO 31.1 (5.4-32.0); C-REACTIVE PROTEIN 0.35 MG/DL (0.0-0.5); CALCIUM 8.7 MG/DL (8.5-10.1); CHLORIDE 105 MMOL/L (99-107); GLUCOSE 133 MG/DL (70-104); POTASSIUM 4.5 MMOL/L (3.5-5.1); SODIUM 139 MMOL/L (135-145); TOTAL CARBON DIOXIDE 25.3 MMOL/L (24-32); eGFR 83 ML/MIN
[2021-05-01] MEDS: morphine 2 MG/ML inj. syringe IV PRN ×3 (09:50→20:30)
[2021-05-01 10:00] VITALS: BP 137/68
[2021-05-01 11:03] LABS: D-DIMER 2.27 MG/L FEU (0-0.50)
[2021-05-01 14:00] VITALS: BP 130/74
--- NOTE | 2021-05-01 14:29 | NUR ---
Initial: Pt admit DX COVID-19, bilateral PNA, SIRS, and HTN per EMR. PO 54% avg heart healthy diet partially meeting needs on 30L HFNC currently per EMR. Noted pt A1C 6.7% this admit w/ no PMH DM per H&P and no home DM meds listed in EMR. RD unable to reach RN via TC regarding if truly new onset DM this admit vs pt hx. Glu 133-163mg/dl while on dexamethasone at this time. IF new onset DM this admit; would benefit from pt notification by physician and written DM ed handout w/ RD contact information prior to discharge. Given PO trends RD recommends Ensure Enlive TIDWM for additional protein/kcal needs; MD notified. LBM 04/30. Will continue to monitor for further nutrition intervention needs. Rec: 1. continue heart healthy diet; consider change to carb controlled if PO trends improve given A1C 6.7%; encourage PO 2. Ensure Enlive TIDWM for additional kcals/protein; pending MD verification in EMR 3. routine bowel care 4. scaled wt this admit; subsequent weekly wts 5. IF New onset DM this admit pt would benefit from notification by physician prior to RD education intervention; A1C 6.7% Addendum: 05/01/21 at [address] Amended: Links added.
[2021-05-01 18:00] VITALS: BP 136/80
[2021-05-01] MEDS ORDERED: lactose-reduced food (Ensure Enlive) - 237ml bottle PO SCH (18:00)
[2021-05-01] MEDS ORDERED: LORazepam 2 mg/ml vial IV PRN (18:25)
[2021-05-01] MEDS: traZODone 50mg tablet PO SCH (20:07)
[2021-05-01] MEDS: zinc sulfate 220mg capsule PO SCH (20:27)
[2021-05-01 22:00] VITALS: BP 113/64
[2021-05-02 02:00] VITALS: BP 112/70
[2021-05-02] MEDS: ALBUTEROL INHALER 1 PUFF/90 MCG INHALER IH SCH ×3 (04:14→14:52)
[2021-05-02 06:00] VITALS: BP 128/70
--- NOTE | 2021-05-02 06:38 | NUR ---
report given to Noel BEAVER, all questions answered
[2021-05-02] MEDS: K and/or MAG REPLACEMENT MC SCH ×2 (08:00→20:16)
[2021-05-02] MEDS: dexamethasone 6 MG in D5W 100ml IV soln IV SCH ×2 (08:00→20:15)
[2021-05-02 09:07] LABS: D-DIMER 4.91 MG/L FEU (0-0.50)
[2021-05-02] MEDS: lisinopril 2.5mg tablet PO SCH (09:15)
[2021-05-02] MEDS: zinc sulfate 220mg capsule PO SCH ×3 (09:16→20:14)
[2021-05-02] MEDS: gabapentin 300mg capsule PO SCH ×3 (09:16→20:13)
[2021-05-02] MEDS: LORazepam 0.5 MG tablet PO PRN ×2 (09:16→13:32)
[2021-05-02] MEDS: docusate sod 100mg capsule PO SCH ×2 (09:16→20:13)
[2021-05-02] MEDS: clopidogrel 75mg tablet PO SCH (09:16)
[2021-05-02] MEDS: cholecalciferol (vitamin D3) 1,000 unit (25mcg) tablet PO SCH (09:16)
[2021-05-02] MEDS: enoxaparin 40mg/0.4ml syringe SUBCUT SCH (09:16)
[2021-05-02] MEDS: atorvastatin 20mg tablet PO SCH (09:16)
[2021-05-02 10:00] VITALS: BP 87/66
[2021-05-02] MEDS: morphine 2 MG/ML inj. syringe IV PRN ×2 (10:42→17:52)
[2021-05-02 14:00] VITALS: BP 114/68
[2021-05-02] MEDS: normal saline 1000ml 1,000 ML IV SCH (17:44)
[2021-05-02 18:00] VITALS: BP 116/72
[2021-05-02] MEDS: traZODone 50mg tablet PO SCH (20:13)
[2021-05-02] MEDS: enoxaparin 100mg/ml syringe SUBCUT SCH (20:14)
[2021-05-02 22:00] VITALS: BP 107/66
[2021-05-03] VITALS (12 sets, daily range): BP systolic 100–135; BP diastolic 70–87
[2021-05-03] MEDS: morphine 2 MG/ML inj. syringe IV PRN ×4 (06:02→18:00)
[2021-05-03] MEDS: clopidogrel 75mg tablet PO SCH (07:18)
[2021-05-03] MEDS: docusate sod 100mg capsule PO SCH ×2 (07:18→20:00)
[2021-05-03] MEDS: atorvastatin 20mg tablet PO SCH (07:18)
[2021-05-03] MEDS: cholecalciferol (vitamin D3) 1,000 unit (25mcg) tablet PO SCH (07:18)
[2021-05-03] MEDS: zinc sulfate 220mg capsule PO SCH ×3 (07:18→20:33)
[2021-05-03] MEDS: enoxaparin 100mg/ml syringe SUBCUT SCH ×2 (07:19→20:52)
[2021-05-03] MEDS: gabapentin 300mg capsule PO SCH ×3 (07:19→20:32)
[2021-05-03] MEDS: dexamethasone 6 MG in D5W 100ml IV soln IV SCH ×2 (07:19→20:00)
[2021-05-03] MEDS: lisinopril 2.5mg tablet PO SCH (07:19)
[2021-05-03] MEDS: K and/or MAG REPLACEMENT MC SCH ×2 (07:20→20:00)
--- NOTE | 2021-05-03 07:48 | NUR ---
Patient sating high 80's to 90% at this time on 100% bipap. When RN removed mask for morning medications, patient desaturated down to low 70's. Recovered with mask reapplied. RT and charge lpn made aware. Patient extremely anxious at this time. Breathing 40 times a min. No PRNs available. Page sent to Dr Gallardo.
[2021-05-03] MEDS: ALBUTEROL INHALER 1 PUFF/90 MCG INHALER IH SCH ×3 (08:00→19:38)
[2021-05-03 08:06] LABS: D-DIMER 6.94 MG/L FEU (0-0.50)
--- NOTE | 2021-05-03 09:08 | NUR ---
Discussing POC with Dr Gallardo at this time. Plan to change frequency of Morphine to 2mg Q2HR as well as Ativan to 1mg Q4H.
[2021-05-03] MEDS: LORazepam 2 mg/ml vial IV PRN ×2 (09:23→13:28)
--- NOTE | 2021-05-03 10:48 | NUR ---
PT REFUSED VITALS, STATING HE WAS GOING HOME, HE WASN'T GOING TO HERE Addendum: 05/03/21 at 1048 by Tricia TEE Amended: Links added.
[2021-05-03] MEDS ORDERED: potassium CL 10mEq/100ml bag 100 ML IV PRN (17:40)
[2021-05-03] MEDS ORDERED: ondansetron/PF 4mg/2ml inj IV PRN (17:40)
[2021-05-03] MEDS ORDERED: HYDROcodone/acetaminophen 10/325mg tab PO PRN (17:40)
[2021-05-03] MEDS ORDERED: ipratropium/albuterol 3ml nebule NEB PRN (17:40)
[2021-05-03] MEDS ORDERED: LIDOcaine 2% 10ml TOPICAL JELLY (Urojet) TP ONE (17:40)
[2021-05-03] MEDS ORDERED: acetaminophen 325mg tablet PO PRN ×2 (17:40)
[2021-05-03] MEDS ORDERED: morphine 2 MG/ML inj. syringe IV PRN (17:40)
[2021-05-03] MEDS ORDERED: magnesium Cl slow-release 64mg tablet PO PRN (17:40)
[2021-05-03] MEDS ORDERED: magnesium hydroxide 30ml (MOM) UD suspension PO PRN (17:40)
[2021-05-03] MEDS ORDERED: potassium Cl 20 mEq SR tablet PO PRN ×2 (17:40)
[2021-05-03] MEDS ORDERED: potassium Cl 20mEq/100mL bag 100 ML IV PRN (17:40)
[2021-05-03] MEDS: normal saline 1000ml 1,000 ML IV SCH (17:59)
--- NOTE | 2021-05-03 18:10 | NUR ---
report given to SARANYA Swift
[2021-05-03] MEDS ORDERED: docusate sod 100mg capsule PO SCH (20:00)
[2021-05-03] MEDS: famotidine/PF 10 mg/ml inj IV SCH (20:52)
[2021-05-03] MEDS: morphine 4 MG/ML inj SYRINge IV PRN (22:23)
[2021-05-03] MEDS: ipratropium/albuterol 3ml nebule NEB SCH (22:24)
--- NOTE | 2021-05-03 22:36 | NUR ---
Pt is a 71 yo male, admitted 04/26/2021, day 8 of hospitalization, full code, no allergies. admitted for COVID PNA. Isolation: Contact for COVID-19 in accordance with facility policies and procedures and CDC recommendations. Pt admitted with COVID symptoms 10 days prior to admission. C/O increased SOB, generalized weakness, cough and fever. Pt was going to leave AMA but decided to stay and was admitted to ORTH floor. 05/03/2021 pt was transferred to ICU for further care and closer monitoring/observation. Currently, relaxed, medicated with morphine, afebrile, follows all commands, HR 78 SR 118/68, good pulses, no edema. Lovenox for DVT prophylaxis. IVF NS @ 75/hr, infusing via RAC #20. Pt is on BIPAP 100% fio2. tolerating settings well. Breath sounds, coarse, equal symmetrical, non labored. RR 18-22, PO 93-99%. Hypoactive bowel sounds, soft non tender, non distended. LBM 05/02/2021. NPO due to BIPAP and severe desaturation when off treatment. Pepcid for GI prophylaxis. Glucose checks Q 6 hours, currently no coverage. Spivey draining john urine. Skin intact and friable. US BLLE NEG for DVT. Pt remains safe, continue to monitor.
[2021-05-04] VITALS (24 sets, daily range): BP systolic 96–140; BP diastolic 63–81
[2021-05-04] MEDS: ipratropium/albuterol 3ml nebule NEB SCH ×4 (03:12→20:43)
[2021-05-04] MEDS: normal saline 1000ml 1,000 ML IV SCH ×2 (07:00→20:34)
[2021-05-04] MEDS: K and/or MAG REPLACEMENT MC SCH ×2 (08:00→20:00)
[2021-05-04] MEDS ORDERED: K and/or MAG REPLACEMENT MC SCH (08:00)
[2021-05-04] MEDS: dexamethasone 6 MG in D5W 100ml IV soln IV SCH ×2 (08:15→20:33)
[2021-05-04] MEDS: zinc sulfate 220mg capsule PO SCH ×3 (08:16→20:34)
[2021-05-04] MEDS: enoxaparin 100mg/ml syringe SUBCUT SCH ×2 (08:16→20:34)
[2021-05-04] MEDS: docusate sod 100mg capsule PO SCH ×2 (08:16→20:33)
[2021-05-04] MEDS: famotidine/PF 10 mg/ml inj IV SCH ×2 (08:16→20:33)
[2021-05-04] MEDS: clopidogrel 75mg tablet PO SCH (08:17)
[2021-05-04] MEDS: lisinopril 2.5mg tablet PO SCH (08:17)
[2021-05-04] MEDS: atorvastatin 20mg tablet PO SCH (08:17)
[2021-05-04] MEDS: cholecalciferol (vitamin D3) 1,000 unit (25mcg) tablet PO SCH (08:17)
[2021-05-04] MEDS: gabapentin 300mg capsule PO SCH ×3 (08:17→20:33)
[2021-05-04] MEDS: morphine 4 MG/ML inj SYRINge IV PRN ×3 (08:33→23:41)
[2021-05-04] MEDS: LORazepam 2 mg/ml vial IV PRN (11:29)
[2021-05-04 11:35] LABS: D-DIMER 4.61 MG/L FEU (0-0.50)
[2021-05-04 11:39] LABS: MEAN PLATELET VOLUME 8.4 FL (7.4-10.4)
[2021-05-04 11:40] LABS: ALANINE AMINOTRANSFERASE 91 U/L (12-78); ALKALINE PHOSPHATASE 103 IU/L (46-116); ANION GAP 6 (8-16); ASPARTATE AMINO TRANSFERASE 47 U/L (10-37); BILIRUBIN,TOTAL 1.1 MG/DL (0.1-1.0); BLOOD UREA NITROGEN 25 MG/DL (7-18); BUN/CREATININE RATIO 30.9 (5.4-32.0); C-REACTIVE PROTEIN 0.07 MG/DL (0.0-0.5); CALCIUM 8.3 MG/DL (8.5-10.1); CHLORIDE 103 MMOL/L (99-107); CREATININE 0.81 MG/DL (0.60-1.10); GLUCOSE 117 MG/DL (70-104); MAGNESIUM 2.2 MG/DL (1.5-2.4); PHOSPHORUS 3.6 MG/DL (2.3-4.5); POTASSIUM 4.6 MMOL/L (3.5-5.1); SODIUM 134 MMOL/L (135-145); TOTAL CARBON DIOXIDE 24.6 MMOL/L (24-32); TOTAL PROTEIN 6.1 G/DL (6.4-8.2); eGFR > 90 ML/MIN
[2021-05-04 11:41] LABS: HEMATOCRIT 44.5 % (42.0-52.0); HEMOGLOBIN 14.9 g/dl (14.0-17.9); MEAN CORPUSCULAR HEMOGLOBIN 28.5 PG (27.0-31.0); MEAN CORPUSCULAR HGB CONC 33.6 g/dL (33.0-36.5); MEAN CORPUSCULAR VOLUME 84.9 FL (78-98); PLATELET COUNT 294 X10'3 (140-440); RED BLOOD COUNT 5.24 X10'6 (4.70-6.10); RED CELL DISTRIBUTION WIDTH 15.5 % (11.5-14.5); WHITE BLOOD COUNT 7.2 X10'3 (4.5-11.0)
[2021-05-04 12:08] LABS: TOTAL CELLS COUNTED 100
[2021-05-04 12:12] LABS: PLATELET ESTIMATE NORMAL
[2021-05-04 17:22] LABS: ABG BASE EXCESS 0.4 mmol/L (-2.0-2.0); ABG HCO3 24.2 mmol/L (22.0-26.0); ABG PO2 (T) 65.1 mmHg (75.0-100.0); ALLEN'S TEST POSITIVE; FCOHb 0.3 % (0.0-3.9); FMetHb 0.3 % (0.0-1.5); FO2Hb 92.4 % (94-97)
--- NOTE | 2021-05-04 18:30 | NUR ---
Patient in room CICU 2008. I have received report from SARANYA Rebolledo and had the opportunity to ask questions and assume patient care.
--- NOTE | 2021-05-04 18:40 | NUR ---
MD hendricks at bedside talking to patient about code status, MD assessed pt's mental status, patient is alert and oriented. He has expressed that he would like to be a DNR. orders placed in chart and purple DNR placed on patient with two RN signatures.
[2021-05-04] MEDS: diphenhydrAMINE 50 mg/ml inj IV SCH (20:33)
[2021-05-05] VITALS (23 sets, daily range): BP systolic 113–147; BP diastolic 59–78
[2021-05-05] MEDS: ipratropium/albuterol 3ml nebule NEB SCH ×4 (03:09→20:06)
--- NOTE | 2021-05-05 04:26 | NUR ---
Problems reprioritized. Patient report given, questions answered & plan of care reviewed with GlynnRN.
[2021-05-05] MEDS: morphine 4 MG/ML inj SYRINge IV PRN ×3 (04:40→13:10)
--- NOTE | 2021-05-05 04:59 | NUR ---
Received report from Jane and assumed care of pt.
[2021-05-05] MEDS: K and/or MAG REPLACEMENT MC SCH ×2 (08:00→19:37)
[2021-05-05] MEDS: lisinopril 2.5mg tablet PO SCH (08:16)
[2021-05-05] MEDS: clopidogrel 75mg tablet PO SCH (08:16)
[2021-05-05] MEDS: famotidine/PF 10 mg/ml inj IV SCH ×2 (08:16→19:36)
[2021-05-05] MEDS: docusate sod 100mg capsule PO SCH ×2 (08:16→19:37)
[2021-05-05] MEDS: atorvastatin 20mg tablet PO SCH (08:16)
[2021-05-05] MEDS: cholecalciferol (vitamin D3) 1,000 unit (25mcg) tablet PO SCH (08:16)
[2021-05-05] MEDS: zinc sulfate 220mg capsule PO SCH ×3 (08:16→22:30)
[2021-05-05] MEDS: gabapentin 300mg capsule PO SCH ×3 (08:16→22:26)
[2021-05-05] MEDS: dexamethasone 6 MG in D5W 100ml IV soln IV SCH ×2 (08:17→19:36)
[2021-05-05] MEDS: enoxaparin 100mg/ml syringe SUBCUT SCH ×2 (08:17→19:36)
[2021-05-05] MEDS: normal saline 1000ml 1,000 ML IV SCH (09:40)
[2021-05-05 11:18] LABS: BASOPHILS % (AUTO) 0.2 % (0-1); EOSINOPHILS % (AUTO) 0.4 % (0-6); HEMATOCRIT 45.4 % (42.0-52.0); HEMOGLOBIN 15.4 g/dl (14.0-17.9); LYMPHOCYTES # (AUTO) 0.2 X10'3 (1.1-4.8); LYMPHOCYTES % (AUTO) 2.4 % (21-51); MEAN CORPUSCULAR HEMOGLOBIN 29.1 PG (27.0-31.0); MEAN CORPUSCULAR VOLUME 85.5 FL (78-98); MEAN PLATELET VOLUME 8.2 FL (7.4-10.4); MONOCYTES # (AUTO) 0.2 X10'3 (0-0.9); MONOCYTES % (AUTO) 2.7 % (2-12); NEUTROPHILS # (AUTO) 8.1 X10'3 (1.8-7.7); NEUTROPHILS % (AUTO) 94.3 % (42-75); PLATELET COUNT 271 X10'3 (140-440); RED BLOOD COUNT 5.31 X10'6 (4.70-6.10); RED CELL DISTRIBUTION WIDTH 15.4 % (11.5-14.5); WHITE BLOOD COUNT 8.6 X10'3 (4.5-11.0)
[2021-05-05] MEDS: LORazepam 2 mg/ml vial IV PRN (11:27)
[2021-05-05 12:09] LABS: ALANINE AMINOTRANSFERASE 72 U/L (12-78); ALBUMIN/GLOBULIN RATIO 0.9 (1.1-1.5); ALKALINE PHOSPHATASE 110 IU/L (46-116); ANION GAP 8 (8-16); ASPARTATE AMINO TRANSFERASE 49 U/L (10-37); BILIRUBIN,TOTAL 1.1 MG/DL (0.1-1.0); BLOOD UREA NITROGEN 25 MG/DL (7-18); BUN/CREATININE RATIO 29.4 (5.4-32.0); CALCIUM 7.8 MG/DL (8.5-10.1); CHLORIDE 103 MMOL/L (99-107); CREATININE 0.85 MG/DL (0.60-1.10); GLUCOSE 108 MG/DL (70-104); MAGNESIUM 2.1 MG/DL (1.5-2.4); PHOSPHORUS 3.5 MG/DL (2.3-4.5); SODIUM 135 MMOL/L (135-145); TOTAL CARBON DIOXIDE 24.5 MMOL/L (24-32); TOTAL PROTEIN 6.3 G/DL (6.4-8.2); eGFR 89 ML/MIN
[2021-05-05 12:11] LABS: C-REACTIVE PROTEIN < 0.05 MG/DL (0.0-0.5)
[2021-05-05] MEDS ORDERED: Dextrose 10%-water IV solution 1,000 ML IV PRN (12:15)
[2021-05-05 13:42] LABS: PREALBUMIN 22.1 MG/DL (19-36)
--- NOTE | 2021-05-05 13:50 | NUR ---
TPN Consult: Pt currently NPO and remains BIPAP/CPAP dependent w/ TPN to start via PICC per MD. DIMITRY d/w RN who reports pending PICC placement at this time w/ TPN to start tomorrow. TPN recs below; will monitor PN tolerance and adjustment needs. LBM 04/27 vs 05/02 w/ varying documentation receiving routine colace per EMR. Will monitor for further nutrition intervention needs this admit. Rec: 1. Continuous TPN per MD using 2:1 Clinimix E 5/20 at 95ml/hr goal w/ separate 100ml 20% intralipids to run for 12 hours each day at 8.33ml/hr. In total; to provide 2280ml volume/day, 114g AA, 456g DEX (3.69mg/kg/min), and total 2206 kcals. 2. TG/PALB Q /; daily wts 3. monitor for PN tolerance and adjustment needs 4. routine bowel care 5. advance to regular diet as medically indicated; consider carb controlled restriction if intake adequate once advances 6. IF New onset DM this admit pt would benefit from notification by physician prior to RD education intervention; A1C 6.7% Addendum: 05/05/21 at [address] Amended: Links added.
[2021-05-05 15:18] LABS: D-DIMER 3.65 MG/L FEU (0-0.50)
[2021-05-05] MEDS: diphenhydrAMINE 50 mg/ml inj IV SCH (19:36)
--- NOTE | 2021-05-05 22:13 | NUR ---
Transferred Pt to room 4024 bed A with RT. Pt transferred by bed. CPAP maintained during transport. Pt oxygen saturations did decrease during bed to bed transfer. Pt did recover to 87%. No other distress noted. Pt was asking for something to sleep and for a drink of water. Water given and SARANYA Gomez received report in the room. All belongings at bed side.
[2021-05-06 02:00] VITALS: BP 118/71
[2021-05-06] MEDS: normal saline 1000ml 1,000 ML IV SCH ×2 (02:31→13:22)
[2021-05-06] MEDS: morphine 4 MG/ML inj SYRINge IV PRN ×3 (02:44→15:55)
[2021-05-06] MEDS: ipratropium/albuterol 3ml nebule NEB SCH ×4 (02:51→20:28)
[2021-05-06 06:00] VITALS: BP 121/71
--- NOTE | 2021-05-06 06:25 | NUR ---
received report from main, rn
[2021-05-06] MEDS: famotidine/PF 10 mg/ml inj IV SCH ×2 (07:18→22:03)
[2021-05-06 07:20] LABS: BASOPHILS % (AUTO) 0.6 % (0-1); EOSINOPHILS # (AUTO) 0.1 X10'3 (0-0.9); EOSINOPHILS % (AUTO) 1.8 % (0-6); HEMATOCRIT 44.7 % (42.0-52.0); HEMOGLOBIN 15.1 g/dl (14.0-17.9); LYMPHOCYTES # (AUTO) 0.4 X10'3 (1.1-4.8); LYMPHOCYTES % (AUTO) 5.6 % (21-51); MEAN CORPUSCULAR HEMOGLOBIN 28.5 PG (27.0-31.0); MEAN CORPUSCULAR HGB CONC 33.8 g/dL (33.0-36.5); MEAN CORPUSCULAR VOLUME 84.3 FL (78-98); MEAN PLATELET VOLUME 8.1 FL (7.4-10.4); MONOCYTES # (AUTO) 0.2 X10'3 (0-0.9); MONOCYTES % (AUTO) 2.6 % (2-12); NEUTROPHILS # (AUTO) 6.3 X10'3 (1.8-7.7); NEUTROPHILS % (AUTO) 89.4 % (42-75); PLATELET COUNT 254 X10'3 (140-440); RED BLOOD COUNT 5.31 X10'6 (4.70-6.10); RED CELL DISTRIBUTION WIDTH 15.2 % (11.5-14.5)
[2021-05-06] MEDS: LORazepam 2 mg/ml vial IV PRN ×2 (07:20→12:49)
[2021-05-06] MEDS: zinc sulfate 220mg capsule PO SCH ×3 (07:22→21:00)
[2021-05-06] MEDS: atorvastatin 20mg tablet PO SCH (07:22)
[2021-05-06] MEDS: docusate sod 100mg capsule PO SCH ×2 (07:22→20:00)
[2021-05-06] MEDS: cholecalciferol (vitamin D3) 1,000 unit (25mcg) tablet PO SCH (07:22)
[2021-05-06] MEDS: gabapentin 300mg capsule PO SCH ×3 (07:23→22:14)
[2021-05-06] MEDS: clopidogrel 75mg tablet PO SCH (07:23)
[2021-05-06] MEDS: lisinopril 2.5mg tablet PO SCH (07:24)
[2021-05-06] MEDS: enoxaparin 100mg/ml syringe SUBCUT SCH ×2 (07:25→22:03)
[2021-05-06 07:36] LABS: ALANINE AMINOTRANSFERASE 65 U/L (12-78); ALBUMIN 2.9 G/DL (3.4-5.0); ALBUMIN/GLOBULIN RATIO 0.9 (1.1-1.5); ALKALINE PHOSPHATASE 117 IU/L (46-116); ANION GAP 10 (8-16); ASPARTATE AMINO TRANSFERASE 51 U/L (10-37); BILIRUBIN,TOTAL 1.1 MG/DL (0.1-1.0); BLOOD UREA NITROGEN 23 MG/DL (7-18); BUN/CREATININE RATIO 28.4 (5.4-32.0); CALCIUM 7.8 MG/DL (8.5-10.1); CHLORIDE 100 MMOL/L (99-107); CREATININE 0.81 MG/DL (0.60-1.10); GLUCOSE 89 MG/DL (70-104); MAGNESIUM 2.2 MG/DL (1.5-2.4); PHOSPHORUS 3.8 MG/DL (2.3-4.5); POTASSIUM 4.8 MMOL/L (3.5-5.1); SODIUM 134 MMOL/L (135-145); TOTAL CARBON DIOXIDE 24.2 MMOL/L (24-32); TOTAL PROTEIN 6.1 G/DL (6.4-8.2); eGFR > 90 ML/MIN
--- NOTE | 2021-05-06 07:41 | NUR ---
scanner on computer not scanning meds into [employer], checked all meds prior to admin
[2021-05-06] MEDS: K and/or MAG REPLACEMENT MC SCH ×2 (08:00→20:00)
[2021-05-06] MEDS: dexamethasone inj 4 MG in dextrose 5%-water 100 ML IV SCH ×2 (08:00→23:49)
[2021-05-06 11:14] VITALS: BP 125/79
--- NOTE | 2021-05-06 14:53 | NUR ---
TPN Consult: addressed; see prior RD note. Addendum: 05/06/21 at [address] Amended: Links added.
[2021-05-06] MEDS ORDERED: Dextrose 10%-water IV solution 1,000 ML IV PRN (15:35)
[2021-05-06] MEDS ORDERED: ZINC/COPPER/MANGANESE/SELENIUM 0.5 ML, chromic chloride inj. 5 MCG in AA 5%/CALCIUM/LYT... IV SCH (17:00)
[2021-05-06] MEDS ORDERED: MVI, adult No.4 with vit. K 10 ML in dextrose 5% water 500ml 500 ML IV SCH ×2 (17:00)
--- NOTE | 2021-05-06 17:58 | NUR ---
TPN AND BANANA BAG NOT AVAILABLE FROM PHARMACY AT THIS TIME
[2021-05-06 18:00] VITALS: BP 109/70
--- NOTE | 2021-05-06 18:20 | NUR ---
GAVE REPORT TO July,
[2021-05-06] MEDS ORDERED: fat emulsion 20% IV 100 ML IV SCH (20:00)
[2021-05-06 22:00] VITALS: BP 131/74
[2021-05-06] MEDS: diphenhydrAMINE 50 mg/ml inj IV SCH (22:04)
[2021-05-07] MEDS: morphine 4 MG/ML inj SYRINge IV PRN ×5 (00:05→20:11)
[2021-05-07] MEDS: normal saline 1000ml 1,000 ML IV SCH ×2 (01:40→15:00)
[2021-05-07 02:00] VITALS: BP 123/69
[2021-05-07] MEDS: ipratropium/albuterol 3ml nebule NEB SCH ×2 (02:54→07:30)
[2021-05-07] MEDS: LORazepam 2 mg/ml vial IV PRN ×3 (04:16→16:59)
--- NOTE | 2021-05-07 04:30 | NUR ---
pt's o2 sat low 80's repositioned still in low 80's.paged rt.
--- NOTE | 2021-05-07 04:47 | NUR ---
morphine 4 mg given rt Sobia here.adjusted mask and put pt on bipap setting 16/7 pressure 100% [id number] DR. Samaniego here.medical scientific liaison called Liana pt's daughter about pt's status.Ana the is coming to be with pt..
[2021-05-07 06:18] LABS: ALANINE AMINOTRANSFERASE 66 U/L (12-78); ALBUMIN 2.8 G/DL (3.4-5.0); ALBUMIN/GLOBULIN RATIO 0.9 (1.1-1.5); ALKALINE PHOSPHATASE 130 IU/L (46-116); ANION GAP 9 (8-16); ASPARTATE AMINO TRANSFERASE 53 U/L (10-37); BILIRUBIN,TOTAL 0.9 MG/DL (0.1-1.0); BLOOD UREA NITROGEN 21 MG/DL (7-18); BUN/CREATININE RATIO 25.6 (5.4-32.0); CALCIUM 7.6 MG/DL (8.5-10.1); CHLORIDE 98 MMOL/L (99-107); CREATININE 0.82 MG/DL (0.60-1.10); GLUCOSE 144 MG/DL (70-104); PHOSPHORUS 3.6 MG/DL (2.3-4.5); POTASSIUM 4.4 MMOL/L (3.5-5.1); SODIUM 131 MMOL/L (135-145); TOTAL CARBON DIOXIDE 24.1 MMOL/L (24-32); eGFR > 90 ML/MIN
[2021-05-07 07:07] LABS: BASOPHILS # (AUTO) 0.1 X10'3 (0-0.2); BASOPHILS % (AUTO) 1.1 % (0-1); EOSINOPHILS % (AUTO) 0.4 % (0-6); HEMATOCRIT 45.2 % (42.0-52.0); HEMOGLOBIN 15.3 g/dl (14.0-17.9); LYMPHOCYTES # (AUTO) 0.2 X10'3 (1.1-4.8); LYMPHOCYTES % (AUTO) 1.9 % (21-51); MEAN CORPUSCULAR HEMOGLOBIN 28.7 PG (27.0-31.0); MEAN CORPUSCULAR HGB CONC 33.9 g/dL (33.0-36.5); MEAN CORPUSCULAR VOLUME 84.7 FL (78-98); MONOCYTES # (AUTO) 0.1 X10'3 (0-0.9); MONOCYTES % (AUTO) 0.9 % (2-12); NEUTROPHILS # (AUTO) 9.1 X10'3 (1.8-7.7); NEUTROPHILS % (AUTO) 95.7 % (42-75); PLATELET COUNT 259 X10'3 (140-440); RED BLOOD COUNT 5.34 X10'6 (4.70-6.10); RED CELL DISTRIBUTION WIDTH 15.3 % (11.5-14.5); WHITE BLOOD COUNT 9.5 X10'3 (4.5-11.0)
[2021-05-07] MEDS: gabapentin 300mg capsule PO SCH ×2 (07:50→13:00)
[2021-05-07] MEDS: docusate sod 100mg capsule PO SCH (07:50)
[2021-05-07] MEDS: atorvastatin 20mg tablet PO SCH (07:50)
[2021-05-07] MEDS: clopidogrel 75mg tablet PO SCH (07:50)
[2021-05-07] MEDS: cholecalciferol (vitamin D3) 1,000 unit (25mcg) tablet PO SCH (07:50)
[2021-05-07] MEDS: zinc sulfate 220mg capsule PO SCH ×2 (07:51→13:00)
[2021-05-07] MEDS: lisinopril 2.5mg tablet PO SCH (07:51)
[2021-05-07] MEDS: K and/or MAG REPLACEMENT MC SCH (08:02)
[2021-05-07] MEDS: dexamethasone inj 4 MG in dextrose 5%-water 100 ML IV SCH (08:02)
[2021-05-07] MEDS: famotidine/PF 10 mg/ml inj IV SCH (08:02)
[2021-05-07] MEDS: enoxaparin 100mg/ml syringe SUBCUT SCH (08:02)
--- NOTE | 2021-05-07 08:24 | NUR ---
PAGER ID: [phone] MESSAGE: [phone] Milian: Patient declining, at bedside considering comfort care. Can you come discuss this with ivon
--- NOTE | 2021-05-07 12:59 | NUR ---
GAVE REPORT TO SARANYA ALARCON
[2021-05-07] MEDS ORDERED: LORazepam 2 mg/ml vial IV PRN (13:15)
[2021-05-07] MEDS ORDERED: morphine 10mg/0.5ml (conc. morphine) oral syringe PO PRN (13:15)
[2021-05-07] MEDS ORDERED: morphine 10mg/ml inj. IV PRN (13:15)
--- NOTE | 2021-05-07 13:40 | NUR ---
Patient transferred to Surgical room 344 B. All belongs sent with patient.
--- NOTE | 2021-05-07 14:05 | NUR ---
REPORT GIVEN TO MIGNON BEAVER, ALL QUESTIONS ANSWERED. FAMILY AT BEDSIDE. PATIENT IS ON COMFORT CARE, STILL WAKES UP AT TIMES.
--- NOTE | 2021-05-07 14:19 | NUR ---
Problems reprioritized. Patient report given, questions answered & plan of care reviewed with SARANYA Howe. Patient's at bedside.
--- NOTE | 2021-05-07 18:57 | NUR ---
Problems reprioritized. Patient report given, questions answered & plan of care reviewed with SARANYA Cerrato.
[2021-05-07 20:00] VITALS: BP 112/65
[2021-05-07] MEDS: diphenhydrAMINE 50 mg/ml inj IV SCH (20:29)
--- NOTE | 2021-05-07 22:00 | NUR ---
PATIENT AT 2110 SURROUNDED BY FAMILY.DR ELIZABETH NOTIFIED,[employer] CALLED AND REFERENCE NUMBER OBTAINED #[phone].[facility] CALLED PER FAMILY REQUEST AND INFORMED OF THEIR WISH TO HAVE THE BODY TRANSPORTED THERE.
--- NOTE | 2021-05-07 23:50 | NUR ---
BODY RELEASED TO [facility] AND REQUIRED SIGNATURES OBTAINED.
== END 2021-05-07 20:11 | DRG 177 ==
LOC: ER 15:57 → ED HOLD 17:43 → ORTHO 4S 18:56 → CICU 2S 05-03 17:12 → ORTHO 4S 05-05 22:01 → SUR 3N 05-07 13:20
PROVIDERS: ADMIT Family Medicine; ATTEND Family Medicine
PROC: XW033E5 Introduction of Remdesivir Anti-infective into Peripheral Vein, Percutaneous Approach, New Technology Group 5 (ICD-10-PCS; principal; 2021-04-26)
PROC: 5A0935A Assistance with Respiratory Ventilation, Less than 24 Consecutive Hours, High Flow/Velocity Cannula (ICD-10-PCS; 2021-04-26)
PROC: B32T1ZZ Computerized Tomography (CT Scan) of Left Pulmonary Artery using Low Osmolar Contrast (ICD-10-PCS; 2021-04-26)
PROC: B3201ZZ Computerized Tomography (CT Scan) of Thoracic Aorta using Low Osmolar Contrast (ICD-10-PCS; 2021-04-26)
PROC: B32S1ZZ Computerized Tomography (CT Scan) of Right Pulmonary Artery using Low Osmolar Contrast (ICD-10-PCS; 2021-04-26)
PROC: 5A0935A Assistance with Respiratory Ventilation, Less than 24 Consecutive Hours, High Flow/Velocity Cannula (ICD-10-PCS; 2021-04-27)
PROC: XW033H5 Introduction of Tocilizumab into Peripheral Vein, Percutaneous Approach, New Technology Group 5 (ICD-10-PCS; 2021-04-28)
PROC: 5A09357 Assistance with Respiratory Ventilation, Less than 24 Consecutive Hours, Continuous Positive Airway Pressure (ICD-10-PCS; 2021-04-28)
PROC: 5A0935A Assistance with Respiratory Ventilation, Less than 24 Consecutive Hours, High Flow/Velocity Cannula (ICD-10-PCS; 2021-04-28)
PROC: 5A0935A Assistance with Respiratory Ventilation, Less than 24 Consecutive Hours, High Flow/Velocity Cannula (ICD-10-PCS; 2021-04-29)
PROC: 5A0935A Assistance with Respiratory Ventilation, Less than 24 Consecutive Hours, High Flow/Velocity Cannula (ICD-10-PCS; 2021-04-30)
PROC: 5A09357 Assistance with Respiratory Ventilation, Less than 24 Consecutive Hours, Continuous Positive Airway Pressure (ICD-10-PCS; 2021-05-01)
PROC: 5A0935A Assistance with Respiratory Ventilation, Less than 24 Consecutive Hours, High Flow/Velocity Cannula (ICD-10-PCS; 2021-05-01)
PROC: 5A09357 Assistance with Respiratory Ventilation, Less than 24 Consecutive Hours, Continuous Positive Airway Pressure (ICD-10-PCS; 2021-05-02)
PROC: 5A0935A Assistance with Respiratory Ventilation, Less than 24 Consecutive Hours, High Flow/Velocity Cannula (ICD-10-PCS; 2021-05-02)
PROC: 5A09457 Assistance with Respiratory Ventilation, 24-96 Consecutive Hours, Continuous Positive Airway Pressure (ICD-10-PCS; 2021-05-03)
PROC: 5A0935A Assistance with Respiratory Ventilation, Less than 24 Consecutive Hours, High Flow/Velocity Cannula (ICD-10-PCS; 2021-05-03)
PROC: 5A09457 Assistance with Respiratory Ventilation, 24-96 Consecutive Hours, Continuous Positive Airway Pressure (ICD-10-PCS; 2021-05-04)
PROC: 5A0935A Assistance with Respiratory Ventilation, Less than 24 Consecutive Hours, High Flow/Velocity Cannula (ICD-10-PCS; 2021-05-04)
PROC: 02HV33Z Insertion of Infusion Device into Superior Vena Cava, Percutaneous Approach (ICD-10-PCS; 2021-05-06)
PROC: B548ZZA Ultrasonography of Superior Vena Cava, Guidance (ICD-10-PCS; 2021-05-06)
DX: U07.1 COVID-19 (principal); J12.82 Pneumonia due to coronavirus disease 2019; J96.01 Acute respiratory failure with hypoxia; J44.0 Chronic obstructive pulmonary disease with (acute) lower respiratory infection; Z66 Do not resuscitate; I25.10 Atherosclerotic heart disease of native coronary artery without angina pectoris; E78.5 Hyperlipidemia, unspecified; E78.00 Pure hypercholesterolemia, unspecified; G89.29 Other chronic pain; M54.9 Dorsalgia, unspecified; Z82.49 Family history of ischemic heart disease and other diseases of the circulatory system; Z86.73 Personal history of transient ischemic attack (TIA), and cerebral infarction without residual deficits; Z79.4 Long term (current) use of insulin; I25.2 Old myocardial infarction; Z83.3 Family history of diabetes mellitus; Z95.1 Presence of aortocoronary bypass graft; Z79.899 Other long term (current) drug therapy; Z79.02 Long term (current) use of antithrombotics/antiplatelets; Z51.5 Encounter for palliative care; I10 Essential (primary) hypertension; G62.9 Polyneuropathy, unspecified
CPT/HCPCS: 36415; 36569; 36573; 36600; 71045; 71275; 80048; 80053; 80061; 82803; 82948; 83036; 83605; 83735; 83880; 84100; 84132; 84134; 84145; 84478; 84484; 85007; 85018; 85025; 85379; 86140; 87040; 87081; 93005; 93970; 94640; 94660; 94760; 94799; 99285; C1751; G0378; J1100; J1200; J1650; J2060; J2270; J3262; J3490; J7030; J7060; Q9967